=== PATIENT | male | born 1990 | race Caucasian/White ===

== ENCOUNTER 2020-06-25 16:30 | Emergency (ER) | payer OTHER ==
[2020-06-25] MEDS ORDERED: OXYMETAZOLINE HCL 100 SPRAYS BOTTLE NAS STA (16:53)
--- NOTE | 2020-06-25 16:56 | ED Physician Documentation ---
History of Present Illness - Stated complaint Stated Complaint: NOSE BLEED/CHEST PX - Chief complaint Chief Complaint: Cardiac - History obtained from History obtained from: Patient - History of Present Illness Timing: Today Pain level max: 2 Pain level now: 1 - Additonal information Additional information: 29-year-old male presents to the emergency department with a nosebleed today. He states that this lasted about 10 to 15 minutes. Resolved with stuffing a napkin in his nose. He states that he remove the napkin and blew his nose and sneezed and the bleeding started again. He repacked his nose. Later he took the packing out again and started to bleed again. No active bleeding currently. He states he also has some chest pain described as a dull pressure sometimes on the left side of the chest, sometimes on the right side of the chest. Nothing makes it better or worse. Denies being on any medications at home. Nothing makes it better or worse. No shortness of breath. No nausea. No vomiting. Review of Systems Ten Systems: 10 systems reviewed and negative Constitutional: denies: Fever, Chills Ears: denies: Ear pain Nose: denies: Rhinorrhea / runny nose, Congestion Throat: denies: Sore throat Cardiac: denies: Palpitations, Calf pain Respiratory: denies: Cough GI: denies: Abdominal Pain, Vomiting, Diarrhea : denies: Dysuria Skin: denies: Rash Musculoskeletal: denies: Neck pain, Back pain Neurologic: denies: Headache PD PAST MEDICAL HISTORY - Past Medical History Past Medical History: No - Past Surgical History Past Surgical History: No - Present Medications Home Medications: Ambulatory Orders Medication Instructions Recorded Confirmed Oxymetazoline HCl [Afrin] 2 sprays FAHAD BID PRN #1 bottle 06/25/20 - Allergies Allergies/Adverse Reactions: Allergies Allergy/AdvReac Type Severity Reaction Status Date / Time No Known Drug Allergies Allergy Verified 06/25/20 16:32 - Living Situation Living Arrangement: reports: At home - Social History Does the pt have substance abuse?: No - Family History Family history: reports: Non contributory PD ED PE NORMAL - Vitals Vital signs reviewed: Yes - General General: Alert and oriented X 3, No acute distress, Well developed/nourished - HEENT HEENT: PERRL, Moist mucous membranes, Other (Dried blood in the right nare. No active bleeding) - Neck Neck: Supple, no meningeal sign - Cardiac Cardiac: RRR, Strong equal pulses - Respiratory Respiratory: No respiratory distress, Clear bilaterally - Abdomen Abdomen: Soft, Non tender, Non distended - Derm Derm: Warm and dry - Extremities Extremities: No edema - Neuro Neuro: Alert and oriented X 3 - Psych Psych: Normal mood, Normal affect Results - Vitals Vitals: Vital Signs - 24 hr 06/25/20 06/25/20 16:33 17:43 Temperature 37.0 C Heart Rate 73 86 Respiratory 18 17 Rate Blood Pressure 142/91 H 122/75 O2 Saturation 99 99 Oxygen O2 Source Room air - EKG (time done) 1638 Rate: Rate (enter#) (77) Rhythm: NSR [place]: Normal Intervals: Normal NC QRS: Normal Ischemia: Normal ST segments - Labs Labs: Laboratory Tests 06/25/20 06/25/20 06/25/20 16:55 16:55 16:55 WBC 9.8 RBC 5.04 Hgb 15.2 Hct 42.8 MCV 84.9 MCH 30.2 MCHC 35.5 RDW 11.9 L Plt Count 220 MPV 10.6 Neut # (Auto) 4.8 Lymph # (Auto) 4.1 H [place] # (Auto) 0.4 Eos # (Auto) 0.4 Baso # (Auto) 0.1 Absolute Nucleated RBC 0.00 Nucleated RBC % 0.0 Sodium 137 Potassium 3.6 Chloride 103 Carbon Dioxide 24 Anion Gap 10.0 BUN 17 Creatinine 1.1 Estimated GFR (MDRD) 79 L Glucose 119 H Calcium 9.6 Total Bilirubin 0.7 AST 24 ALT 51 Alkaline Phosphatase 92 Troponin I High Sens 2.5 Total Protein 7.3 Albumin 4.5 Globulin 2.8 Albumin/Globulin Ratio 1.6 Lipase 36 - Rads (name of study) cxr Radiology: Prelim report reviewed, EMP read contemporaneously, See rad report (no acute cardiopulmonary abnormality) PD MEDICAL DECISION MAKING - ED course Complexity details: reviewed results, re-evaluated patient, considered di fferential (No ST elevation HI, no aortic dissection, no PE, no tension pneumothorax, no aortic aneurysm), d/w patient ED course: No further epistaxis in the emergency department. Afrin was placed inside each nare. Counseled not to blow his nose. No evidence of acute coronary syndrome, pulmonary embolus, pneumothorax. Patient will follow up with his doctor for further care. Patient counseled regarding signs and symptoms for which I believe and urgent re-evaluation would be necessary. Patient with good understanding of and agreement to plan and is comfortable going home at this time This document was made in part using voice recognition software. While efforts are made to proofread this document, sound alike and grammatical errors may occur. Departure - Departure Disposition: Home, Self Care Clinical Impression: Epistaxis Chest pain Qualifiers: Chest pain type: unspecified Qualified Code(s): R07.9 - Chest pain, unspecified Condition: Good Instructions: ED Chest Pain Atypical Unkn Cause, ED Nosebleed Follow-Up: your,doctor in 1 week [Other] Prescriptions: Oxymetazoline HCl [Afrin] 2 sprays FAHAD BID PRN #1 bottle PRN Reason: epistaxis Comments: Follow-up with your doctor in 1 week for further care. Return if you worsen. Your testing is normal today. You can use the Afrin twice a day for the next 3 days, but not longer than that. Do not blow or pick your nose for the next 48 hours. If bleeding recurs, you can clamp your nose for 15 minutes. Discharge Date/Time: 06/25/20 17:46
[2020-06-25 17:07] LABS: BASOPHILS # (AUTO) 0.1 10^3/uL (0.0-0.1); BASOPHILS % (AUTO) 0.7 %; EOSINOPHILS # (AUTO) 0.4 10^3/uL (0.0-0.7); EOSINOPHILS % (AUTO) 3.9 %; HGB - HEMOGLOBIN 15.2 g/dL (14.0-18.0); LYMPHOCYTES # (AUTO) 4.1 10^3/uL (1.5-3.5); LYMPHOCYTES % (AUTO) 41.6 %; MEAN CORPUSCULAR HEMOGLOBIN 30.2 pg (27.0-31.0); MEAN CORPUSCULAR HGB CONC 35.5 g/dL (32.0-36.0); MEAN CORPUSCULAR VOLUME 84.9 fL (80.0-94.0); MEAN PLATELET VOLUME 10.6 fL (7.4-11.4); MONOCYTES # (AUTO) 0.4 10^3/uL (0.0-1.0); MONOCYTES % (AUTO) 4.5 %; NEUTROPHILS # (AUTO) 4.8 10^3/uL (1.5-6.6); PLT - PLATELET COUNT 220 10^3/uL (130-450); RED BLOOD COUNT 5.04 10^6/uL (4.70-6.10); RED CELL DISTRIBUTION WIDTH 11.9 % (12.0-15.0); WHITE BLOOD COUNT 9.8 x10^3/uL (4.8-10.8)
[2020-06-25 17:19] LABS: ALBUMIN 4.5 g/dL (3.2-5.5); ALBUMIN/GLOBULIN RATIO 1.6 (1.0-2.2); BILIRUBIN,TOTAL 0.7 mg/dL (0.2-1.0); CALCIUM 9.6 mg/dL (8.5-10.3); CREATININE 1.1 mg/dL (0.6-1.2); TOTAL PROTEIN 7.3 g/dL (6.7-8.2)
--- NOTE | 2020-06-25 17:24 | XRAY Report ---
PROCEDURE: Chest 1 View X-Ray INDICATIONS: Chest Pain TECHNIQUE: One view of the chest was acquired. COMPARISON: None. FINDINGS: Surgical changes and devices: None. Lungs and pleura: No pleural effusions or pneumothorax. Lungs are clear. Mediastinum: Mediastinal contours appear normal. Heart size is normal. Bones and chest wall: No suspicious bony lesions. Overlying soft tissues appear unremarkable. IMPRESSION: No acute cardiopulmonary abnormality. Reviewed by: Hayden De Leon MD on 06/25/2020 4:23 PM [facility] Approved by: Hayden De Leon MD on 06/25/2020 4:23 PM [facility] Station ID: [id number]
[2020-06-25 17:43] VITALS: BP 122/75
== END 2020-06-25 17:46 | disposition home or self-care (01) ==
LOC: ED 16:30
DX: R04.0 Epistaxis (principal); R07.9 Chest pain, unspecified
CPT/HCPCS: 71045; 80053; 83690; 84484; 85025; 93005; 99284; A9270

== ENCOUNTER 2021-08-25 13:28 | Emergency (ER) | payer OTHER ==
[2021-08-25 13:38] VITALS: BP 124/79
--- NOTE | 2021-08-25 13:48 | ED Physician Documentation ---
PD HPI LOWER EXT INJURY - Stated complaint Stated Complaint: LEFT ANKLE INJURY - Chief complaint Chief Complaint: Trauma Ext - History obtained from History obtained from: Patient - History of Present Illness PD HPI LOW EXT INJURY LOCATION: Left, Ankle Type of injury: Twist Where injury occurred: Street Timing - onset: Today Timing - duration: Hours Timing - details: Abrupt onset, Still present Improved by: Rest, Immobilization Worsened by: Moving, Palpating Associated symptoms: Swelling. No: Weakness, Numbness Contributing factors: No: Anticoagulated Similar symptoms before: Diagnosis (ankle sprain) Recently seen: Not recently seen - Additional information Additional information: 30-year-old male reports that he was out skateboarding today when he went over a small pyramid be board flipped and he landed twisting his left ankle and an inversion injury. He has been able to bear some weight on this and comes to the emergency department now for evaluation. He states he has 8 out of 10 pain and had some queasiness with the onset of the pain. He has not otherwise been ill recently. Review of Systems Constitutional: denies: Fever Nose: denies: Congestion Respiratory: denies: Cough GI: denies: Vomiting, Diarrhea Musculoskeletal: reports: Joint pain, Joint swelling, Pain with weight bearing. denies: Neck pain, Back pain Neurologic: denies: Generalized weakness, Focal weakness, Numbness PD PAST MEDICAL HISTORY - Past Medical History Cardiovascular: None Respiratory: None Neuro: None Endocrine/Autoimmune: None GI: None : None HEENT: None Psych: None Musculoskeletal: None Derm: None - Past Surgical History Past Surgical History: No - Present Medications Home Medications: Ambulatory Orders Medication Instructions Recorded Confirmed Oxymetazoline HCl [Afrin] 2 sprays FAHAD BID PRN #1 bottle 06/25/20 - Allergies Allergies/Adverse Reactions: Allergies Allergy/AdvReac Type Severity Reaction Status Date / Time No Known Drug Allergies Allergy Verified 08/25/21 13:38 - Social History Does the pt smoke?: No Smoking Status: Never smoker Does the pt drink ETOH?: No Does the pt have substance abuse?: No - Immunizations Immunizations are current?: Yes - POLST Patient has POLST: No PD ED PE NORMAL - Vitals Vital signs reviewed: Yes (normal) - General General: Alert and oriented X 3, No acute distress, Well developed/nourished - HEENT HEENT: Atraumatic, PERRL, EOMI - Respiratory Respiratory: No respiratory distress - Derm Derm: Normal color, Warm and dry, No rash - Extremities Extremities: No deformity, Other (swelling and point tenderness over the left talofibular ligament and lateral malleolus. Proximal 5th is unaffected. 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, No motor deficit, No sensory deficit, Normal speech Eye Opening: Spontaneous Motor: Obeys Commands Verbal: Oriented GCS Score: 15 - Psych Psych: Normal mood, Normal affect Results - Vitals Vitals: Vital Signs - 24 hr 08/25/21 13:35 Temperature 36.0 C L Heart Rate 100 Respiratory 16 Rate Blood Pressure 124/79 O2 Saturation 99 Oxygen O2 Source Room air - Rads (name of study) ankle Radiology: Prelim report reviewed (Impression: No acute osseous abnormality.), EMP read indepedently, See rad report Procedures - Splint (location) ankle L Splint applied by: Physician Type of splint: Ankle airsplint Other: Patient tolerated well, No complications, Neurovascular intact, Good alignment PD MEDICAL DECISION MAKING - ED course Complexity details: reviewed results, re-evaluated patient, considered differential, d/w patient ED course: 30-year-old male who twisted his ankle while skateboarding presents to the emergency department today and films were taken of his ankle which did not demonstrate any evidence of a fracture. We were able to place him into an air cast and I have asked patient to wear this / for the next 2 weeks. 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 Departure - Departure Disposition: 01 Home, Self Care Clinical Impression: Ankle sprain Qualifiers: Encounter type: initial encounter Involved ligament of ankle: anterior talofibular ligament Laterality: left Qualified Code(s): S93.492A - Sprain of other ligament of left ankle, initial encounter Condition: Stable Instructions: ED Sprain Ankle W X Ray Follow-Up: [facility] [Provider Group]
--- NOTE | 2021-08-25 14:09 | XRAY Report ---
PROCEDURE: Ankle 3 View LT INDICATIONS: twist lateral pain TECHNIQUE: 3 views of the ankle were acquired. COMPARISON: None. FINDINGS: BONES: No acute, displaced fracture or dislocation. The ankle mortise is maintained on these nonstre ssed views. SOFT TISSUES: Trace tibiotalar joint effusion. Lateral soft tissue edema. IMPRESSION: 1.No acute osseous abnormality. Reviewed by: Chris Wan MD on 08/25/2021 2:08 PM PST Approved by: Chris Wan MD on 08/25/2021 2:08 PM PST Station ID: [id number]
== END 2021-08-25 14:39 | disposition home or self-care (01) ==
LOC: ED 13:28
DX: S93.492A Sprain of other ligament of left ankle, initial encounter (principal); X50.1XXA Overexertion from prolonged static or awkward postures, initial encounter; Y93.51 Activity, roller skating (inline) and skateboarding; Y92.410 Unspecified street and highway as the place of occurrence of the external cause
CPT/HCPCS: 29515; 99282

== ENCOUNTER 2023-04-26 18:17 | Emergency (ER) | payer OTHER ==
[2023-04-26 19:33] LABS: B. PARAPERTUSSIS- RESP PCR PAN NOT DETECTED; B. PERTUSSIS- RESP PCR PANEL NOT DETECTED; C. PNEUMONIAE- RESP PCR PANEL NOT DETECTED; CORONAVIRUS 229E-RESP PCR NOT DETECTED; CORONAVIRUS HKU1-RESP PCR NOT DETECTED; CORONAVIRUS NL63-RESP PCR NOT DETECTED; CORONAVIRUS OC43-RESP PCR NOT DETECTED; HUMAN METAPNEUMOVIRUS NOT DETECTED; INFLUENZA A- RESP PCR PANEL NOT DETECTED; INFLUENZA B - RESP PCR PANEL NOT DETECTED; M. PNEUMONIAE- RESP PCR PANEL NOT DETECTED; PARAINFLUENZA VIRUS 1 NOT DETECTED; PARAINFLUENZA VIRUS 2 NOT DETECTED; PARAINFLUENZA VIRUS 3 NOT DETECTED; PARAINFLUENZA VIRUS 4 NOT DETECTED; RHINOVIRUS/ENTEROVIRUS NOT DETECTED; RSV- RESP PCR PANEL NOT DETECTED; SARS-CoV-2 -RESP PCR PANEL NOT DETECTED
--- NOTE | 2023-04-26 19:44 | ED Physician Documentation ---
PD HPI URI - Stated complaint Stated Complaint: FEVER,CHILLS,BODYACHES - Chief complaint Chief Complaint: Heent - History obtained from History obtained from: Patient - History of Present Illness Timing - onset: How many days ago (2) Timing duration: Days (2) Timing details: Gradual onset Associated symptoms: Fever, Rhinorrhea, Dry cough. No: Hemoptysis, Chest pain, Dyspnea, NVD - Additional information Additional information: 32-year-old male with a fever and a cough since yesterday. He states he took a home COVID test and was unsure if it was positive or negative. Came here for a COVID test. The cough is mostly dry. No nausea or vomiting. No dyspnea. No chest pain. Nothing makes it better or worse. Review of Systems Constitutional: reports: Fever Nose: reports: Rhinorrhea / runny nose, Congestion Cardiac: denies: Chest pain / pressure Respiratory: reports: Cough. denies: Dyspnea, Wheezing GI: denies: Abdominal Pain, Nausea, Vomiting, Diarrhea Skin: denies: Rash PD PAST MEDICAL HISTORY - Past Medical History Cardiovascular: None Respiratory: None Neuro: None Endocrine/Autoimmune: None GI: None : None HEENT: None Psych: None Musculoskeletal: None Derm: None - Past Surgical History Past Surgical History: No - Present Medications Home Medications: Ambulatory Orders Medication Instructions Recorded Confirmed No Known Home Medications 04/26/23 04/26/23 - Allergies Allergies/Adverse Reactions: Allergies Allergy/AdvReac Type Severity Reaction Status Date / Time No Known Drug Allergies Allergy Verified 08/25/21 13:38 - Social History Does the pt smoke?: No Smoking Status: Never smoker Does the pt drink ETOH?: No Does the pt have substance abuse?: No - Immunizations Immunizations are current?: Yes - POLST Patient has POLST: No PD ED PE NORMAL - Vitals Vital signs reviewed: Yes - General General: Alert and oriented X 3, No acute distress - HEENT HEENT: PERRL, Moist mucous membranes - Neck Neck: Supple, no meningeal sign - Cardiac Cardiac: RRR, Strong equal pulses - Respiratory Respiratory: No respiratory distress, Clear bilaterally - Abdomen Abdomen: Soft, Non tender, Non distended - Derm Derm: Warm and dry - Extremities Extremities: No deformity - Neuro Neuro: Alert and oriented X 3 - Psych Psych: Normal mood, Normal affect Results - Vitals Vitals: Vital Signs - 24 hr 04/26/23 04/26/23 18:26 19:50 Temperature 37.2 C 36.8 C Heart Rate 106 H 80 Respiratory 16 18 Rate Blood Pressure 142/84 H 115/71 O2 Saturation 96 98 Oxygen O2 Source Room air - Labs Labs: Laboratory Tests 04/26/23 18:29 Nasal Adenovirus (PCR) NOT DETECTED Nasal B. parapertussis DNA (PCR) NOT DETECTED Nasal Coronavir 229E PCR NOT DETECTED Nasal Coronavir HKU1 PCR NOT DETECTED Nasal Coronavir NL63 PCR NOT DETECTED Nasal Coronavir OC43 PCR NOT DETECTED Nasal Enterovir/Rhinovir PCR NOT DETECTED Nasal Influenza B PCR NOT DETECTED Nasal Influenza A PCR NOT DETECTED Nasal Parainfluen 1 PCR NOT DETECTED Nasal Parainfluen 2 PCR NOT DETECTED Nasal Parainfluen 3 PCR NOT DETECTED Nasal Parainfluen 4 PCR NOT DETECTED Nasal RSV (PCR) NOT DETECTED Nasal B.pertussis DNA PCR NOT DETECTED Nasal C.pneumoniae (PCR) NOT DETECTED Dev Human Metapneumo PCR NOT DETECTED Nasal M.pneumoniae (PCR) NOT DETECTED Nasal SARS-CoV-2 (PCR) NOT DETECTED PD Medical Decision Making - ED course Complexity details: reviewed results, re-evaluated patient, considered differential, d/w patient ED course: Patient is well-appearing, nontoxic. Afebrile here. No hypoxia. No respiratory distress. Respiratory PCR is negative. COVID-negative. We will treat as a viral URI and have him follow-up with his PCP for further care. Lungs clear to auscultation bilaterally. No evidence of pneumonia clinically. Patient counseled regarding signs and symptoms for which I believe and urgent re-evaluation would be necessary. Patient with good understanding of and a greement to plan and is comfortable going home at this time This document was made in part using voice recognition software. While efforts are made to proofread this document, sound alike and grammatical errors may occur. Departure - Departure Disposition: 01 Home, Self Care Clinical Impression: Viral URI Condition: Good Instructions: ED URI Viral Follow-Up: your,doctor in 1 week [Other] Comments: Your respiratory panel including your COVID test is negative tonight. This is likely a viral upper respiratory illness. Please use Motrin and Tylenol as needed for pain. Please return if you worsen. Forms: PCP List Discharge Date/Time: 04/26/23 19:50
[2023-04-26 19:57] VITALS: BP 115/71; O2SAT 98
== END 2023-04-26 19:50 | disposition home or self-care (01) ==
LOC: ED 18:17
DX: J06.9 Acute upper respiratory infection, unspecified (principal); Z20.822 Contact with and (suspected) exposure to COVID-19
CPT/HCPCS: 87633; 99283

== ENCOUNTER 2023-04-29 10:57 | Emergency (ER) | payer OTHER ==
[2023-04-29 11:30] VITALS: BP 129/84; O2SAT 96
--- NOTE | 2023-04-29 11:35 | ED Physician Documentation ---
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 Worked last night. When he woke up this morning he found that he had green crusting on his left eye. No loss of vision. Eye feels heavy and full. Wants to make sure he does not have a conjunctivitis that his communicable. Review of Systems Eyes: reports: Discharge, Irritation. denies: Loss of vision, Decreased vision Ears: reports: Reviewed and negative Nose: reports: Congestion Respiratory: reports: Cough GI: reports: Reviewed and negative PD PAST MEDICAL HISTORY - Past Medical History Past Medical History: No Cardiovascular: None Respiratory: None Neuro: None Endocrine/Autoimmune: None GI: None : None HEENT: None Psych: None Musculoskeletal: None Derm: None - Past Surgical History Past Surgical History: No - Present Medications Home Medications: Ambulatory Orders Medication Instructions Recorded Confirmed Ofloxacin 0.3% Ophth Drops 5 drops LEFTEYE BID 5 Days #5 ml 04/29/23 [Ocuflox 0.3% Ophth Drops] - Allergies Allergies/Adverse Reactions: Allergies Allergy/AdvReac Type Severity Reaction Status Date / Time No Known Drug Allergies Allergy Verified 08/25/21 13:38 - Social History Does the pt smoke?: No Smoking Status: Never smoker Does the pt drink ETOH?: No Does the pt have substance abuse?: No - Immunizations Immunizations are current?: Yes - POLST Patient has POLST: No PD ED PE NORMAL - General General: Alert and oriented X 3, No acute distress, Well developed/nourished - HEENT HEENT: Atraumatic, PERRL, EOMI, Moist mucous membranes, Other (Left eye with mild conjunctival injection. No obvious drainage noted. Negative fluorescein stain. No pain with ocular movement. Reports normal vision) Results - Vitals Vitals: Vital Signs - 24 hr 04/29/23 11:20 Temperature 37 C Heart Rate 88 Respiratory 16 Rate Blood Pressure 129/84 H O2 Saturation 96 Oxygen O2 Source Room air PD Medical Decision Making - ED course Complexity details: d/w patient ED course: 32-year-old male here with some left eye conjunctival injection and drainage noted at home. On exam no fluorescein uptake or findings suggest abrasion or ulceration. Given the reported green mucoid drainage we will treat for possible bacterial conjunctivitis with ofloxacin drops. History is not consistent with an iritis or keratitis. Discussed warm compress. Follow-up with [facility]. The usual emergent return precautions for worsening symptoms discussed. Departure - Departure Disposition: 01 Home, Self Care Clinical Impression: Acute conjunctivitis, left eye Qualifiers: Acute conjunctivitis type: unspecified Qualified Code(s): H10.32 - Unspecified acute conjunctivitis, left eye Condition: Stable Record reviewed to determine appropriate education?: Yes Prescriptions: Ofloxacin 0.3% Ophth Drops [Ocuflox 0.3% Ophth Drops] 5 drops LEFTEYE BID 5 Days #5 ml Comments: Cristino you have recently been dealing with a head cold. This morning he woke up and found that your left eye was inflamed and had some green drainage. In order to treat this I would like you to place a warm compress of the left eye for 5 minutes twice a day. Following this place 5 antibiotic drops in the left eye. After 24 to 40 hours of treatment I would expect marked improvement in your symptoms. Please follow closely with [facility]. Return immediately to the ER for any new or worsening symptoms including severe eye pain or loss of vision.
== END 2023-04-29 11:50 | disposition home or self-care (01) ==
LOC: ED 10:57
DX: H10.32 Unspecified acute conjunctivitis, left eye (principal)
CPT/HCPCS: 99282; 99283

== ENCOUNTER 2023-09-24 13:58 | Outpatient (CLI) | payer OTHER ==
--- NOTE | 2023-09-24 14:58 | Sleep Patient Instructions ---
Sleep Center Visit Summary - Patient Visit Information Reason for Visit: Initial consult for evaluation of sleep disordered breathing and other sleep issues. - Patient Instructions Instructions Attached: Sleep Study, Sleep Study Home Monitor Additional Instructions: You will be completing a sleep study, either an in-lab polysomnography (PSG) or home sleep study (HST). You will follow-up in the sleep care office after the sleep study is completed to hear the results and talk about therapy, if needed. You will be called by our office staff to schedule this appointment, but you may contact us with any questions. - Clinic Information Contact: [facility] [address] [place] [id number] [email or web address] T: [phone]
--- NOTE | 2023-09-24 15:02 | SLEEP CARE CONSULTATION ---
Information from patient questionnaire entered by Rakan Estrada. I have reviewed and concur with the information entered by Rakan Estrada. This document represents the service I personally performed and the decisions made by me, Eleanor Kohli ARNP. History of Present Illness Service Date and Time: 09/24/2023 5607 Reason for Visit: New patient Chief Complaint: reports: Unrefreshed sleep, Snoring, Excessive daytime sleepiness, Observed pauses in breathing, Fatigue, Frequent awakenings at night Date of Onset: 15 years Usual bedtime: 9 PM - 11 PM Time it takes to fall asleep: 5-15 min Snores at night: Yes Observed to quit breathing while asleep: Yes Sleeps alone due to snoring: No Number of times waking at night: 2 - 3 Reasons for waking at night: reports: Choking, Snoring, Gasping for air (not all the time), Bathroom, Other (unknown reasons) Toss, Turn, or Twitch while sleeping: Yes Recalls having dreams: Yes Usually gets out of bed at: 4 - 6 AM; weekends 6-7 AM Feels refreshed in the morning: No Morning headache: No Sleepy or fatigued during the day: Yes Ever fallen asleep while driving: No Takes day naps: No Dreams during day naps: No Prior sleep studies: No Additional HPI information: I had the pleasure of seeing LYNDA BLACKMON today regarding the possibility of him having a sleep disorder. His current complaints are excessive daytime sleepiness, fatigue, frequent night awakenings, observed pauses in breathing, snoring and unrefreshed sleep. He was talking to flight doc about sleep issues last year. He was unable to followup with referral for sleep last year. He was referred back here as an emergent referral. His says he is a loud snorer and will stop breathing when sleeping. He says his nostrils will collapse and restrict his ability to breathe through his nose. 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 Patient is and lives in [place]. Have you smoked in the past 12 months: Yes (vaping, not cigarettes) Cigarettes per day (20/pack): 20 Years of smokin Quit date: 2020 Smoking Pack Years: 18.0 Alcohol use: Yes Alcohol amount and frequency: Couple beers every few weeks Caffeine use: Yes Caffeine amount and frequency: 1 coffee daily Family History Family history of sleep disordered breathing: Yes Family Hx Sleep Apnea: Sibling: Snoring, Sleep apnea - Treated Allergies and Home Medications Known drug allergies: No Drug allergies reviewed: Yes Home medication list reviewed: Yes Allergy and home medication list: Allergies No Known Drug Allergies Allergy Home Medications No Known Home Medications 09/24/23 [History] Review of Systems Weight gain over past 5 years: 0 Weight loss over past 5 years: 0 Cardiovascular: denies: high blood pressure Gastrointestinal: reports: heartburn, diarrhea Neurological: denies: headaches Psychiatric: denies: anxiety, depression Ear/Nose/Throat: reports: nasal congestion, sinus problems, nose bleeds, dry mouth/throat, wisdom teeth removed. denies: tonsillectomy Endocrine: reports: increased appetite Musculoskeletal: reports: joint pain (/stiffness), back pain Immunologic: reports: sneezing (/runny nose) Physical Exam Vital signs obtained and entered by: Eleanor Johnson NP Blood Pressure: 117/70 Cuff size: wrist (left) Heart Rate: 91 O2 Saturation: 96 Height: 5 ft 6 in Weight: 192 lb 9.6 oz Body Mass Index: 31.1 BMI Classification: Obese Neck circumference: 15.5 Mouth and throat: narrow oropharynx Soft palate: long Hard palate: normal Uvula: normal Uvula visualization: 25% Mallampati Class III Tongue: enlarged in size with teeth perez on lateral edges Tonsils: 2+ Neck: normal w/o lymphadenopathy or thyromegaly Heart: regular rate and rhythm Lungs: clear bilaterally Impression and Plan 1. Suspected Obstructive Sleep Apnea-Hypopnea Syndrome, as suggested by a history of loud and irregular snoring, observed cessation of breath while asleep, gasping or choking in sleep, frequent awakening during the night, unrefreshed sleep, cognitive impairment, and excessive daytime sleepiness. Narrow oropharynx and obesity are common predisposing factors for obstructive sleep apnea-hypopnea syndrome. I recommend proceeding to polysomnography to confirm the diagnosis and to assess severity. If the patient has significant sleep disordered breathing, a manual CPAP titration study will also be performed to find the optimal treatment pressure. I informed the patient of what the sleep studies involve and after some discussion, obtained agreement to proceed. The pathophysiology of obstructive sleep apnea-hypopnea syndrome was discussed with the patient and health risks of cardiovascular and cerebrovascular disease if not treated. Risks of drowsy driving discussed in detail and patient advised to avoid long distance driving and to tack puller at the first sign of drowsiness. Patient agreed to plan. * Schedule polysomnography. * Avoid long distance driving or driving when feeling sleepy. * Avoid alcohol, sedative and muscle relaxant around bedtime. * Attempt to lose weight. * Review instructions provided by trained office staff on how to prepare for the sleep study. * Return for follow-up after sleep study completed. Counseling Topics: Weight loss health impact Plan: PSG/HST Visit Type: In Office Time Spent with Patient (minutes): 30 Provider Statement: I spent 100% of the Face to Face Visit with the patient with greater than 50% spent counseling the patient and coordination of care.
[2023-09-24 15:04] VITALS: BP 117/70; O2SAT 96
== END 2023-09-24 13:59 | disposition home or self-care (01) ==
LOC: SC 13:58
PROVIDERS: ATTEND Nurse Practitioner Family
DX: R06.83 Snoring (principal); R06.81 Apnea, not elsewhere classified; G47.8 Other sleep disorders; R41.89 Other symptoms and signs involving cognitive functions and awareness; G47.10 Hypersomnia, unspecified; E66.9 Obesity, unspecified; Z68.31 Body mass index [BMI] 31.0-31.9, adult; Z87.891 Personal history of nicotine dependence
CPT/HCPCS: 99203; 99212

== ENCOUNTER 2023-10-03 09:47 | Emergency (ER) | payer OTHER ==
--- NOTE | 2023-10-03 11:29 | ED Physician Documentation ---
History of Present Illness - Stated complaint Stated Complaint: LT FOOT SWELLING - Chief complaint Chief Complaint: Ext Problem - History obtained from History obtained from: Patient - Additonal information Additional information: 34-year-old male presents with concern for bilateral lower extremity swelling, left more so than right. Patient states that he had flown to [place], then drove to [place] then back to [place] and then flew home over the course of the last week or so. While he was in [place], he did get a sunburn on the top of his feet and then subsequently developed a swelling the day after. He is occasional mild twinges of pain in the back of the left leg. He has not had a fever, there has not been any blistering or drainage in the lower extremity, no chest pain or shortness of breath. Patient has no history of DVT or PE but states there is a strong family history with his mother and multiple other family members with VTEs therefore he wanted to be evaluated. Review of Systems Constitutional: reports: Reviewed and negative Eyes: reports: Reviewed and negative Ears: reports: Reviewed and negative Nose: reports: Reviewed and negative Throat: reports: Reviewed and negative Cardiac: reports: Pedal edema. denies: Chest pain / pressure, Calf pain Respiratory: reports: Reviewed and negative GI: reports: Reviewed and negative : reports: Reviewed and negative Skin: reports: Rash Musculoskeletal: reports: Extremity swelling Neurologic: reports: Reviewed and negative Psychiatric: reports: Reviewed and negative Endocrine: reports: Reviewed and negative PD PAST MEDICAL HISTORY - Past Medical History Past Medical History: No Cardiovascular: None Respiratory: None Neuro: None Endocrine/Autoimmune: None GI: None : None HEENT: None Psych: None Musculoskeletal: None Derm: None - Past Surgical History Past Surgical History: Yes General: Hiatal hernia repair - Present Medications Home Medications: Ambulatory Orders Medication Instructions Recorded Confirmed No Known Home Medications 09/24/23 10/03/23 - Allergies Allergies/Adverse Reactions: Allergies Allergy/AdvReac Type Severity Reaction Status Date / Time No Known Drug Allergies Allergy Verified 10/03/23 10:07 - Social History Does the pt smoke?: No Smoking Status: Never smoker Does the pt drink ETOH?: Yes Does the pt have substance abuse?: No - Immunizations Immunizations are current?: Yes - POLST Patient has POLST: No PD ED PE NORMAL - Vitals Vital signs reviewed: Yes - General General: Alert and oriented X 3, No acute distress, Well developed/nourished - HEENT HEENT: Atraumatic, Moist mucous membranes - Cardiac Cardiac: RRR, No murmur - Respiratory Respiratory: No respiratory distress, Clear bilaterally - Derm Derm: Normal color, Warm and dry, Other (Mild sunburn to the top of both feet, nontender, no cellulitis.) - Extremities Extremities: No calf tenderness / cord, Other (Bilateral ankle and foot edema, left more so than right) - Neuro Neuro: Alert and oriented X 3 Eye Opening: Spontaneous Motor: Obeys Commands Verbal: Oriented GCS Score: 15 Results - Vitals Vitals: Vital Signs - 24 hr 10/03/23 09:59 Temperature 37.3 C Heart Rate 77 Respiratory 14 Rate Blood Pressure 128/81 H O2 Saturation 98 Oxygen O2 Source Room air - Rads (name of study) No standard instances Relevant Findings:: Prelim report reviewed PD Medical Decision Making - ED course Complexity details: reviewed results, re-evaluated patient, considered differential, d/w patient ED course: 33-year-old male presented with bilateral lower extremity swelling, left more so than right. He did sustain a sunburn to the top of both feet while in [place] recently and I think this is likely the cause of his swelling as well as his legs being in dependent position frequently over the last Week, but the patient did have some risk factors for possible DVT as well as family history therefore we did obtain ultrasound which was negative. Patient advised to keep legs elevated whenever possible, adhere to a low-salt diet, consider compression stockings, and monitor sunburn to ensure healing and no infection. Return precautions reviewed in detail with the patient and was discharged home in stable condition. Departure - Departure Disposition: 01 Home, Self Care Clinical Impression: Bilateral lower extremity edema Condition: Good Instructions: ED Edema Legs Bilateral Comments: I think the swelling is likely due to your recent sunburn. You do not have any blood clot on the ultrasound. Please keep the legs elevated whenever possible for the next few days, you can consider getting compression stockings, and to keep the sunburn and skin moisturized to avoid any infection. If you have any new concerns, return to the ER. Forms: PCP List
--- NOTE | 2023-10-03 13:10 | Ultrasound Report ---
PROCEDURE: Duplex Ext Veins Left INDICATIONS: swelling, risk factors for DVT TECHNIQUE: Real-time imaging, as well as color and pulse Doppler interrogation, were performed of the lower extr emity deep veins from the inguinal ligament to the popliteal fossa. Attempted visualization of the ca lf veins was performed. COMPARISON: None. FINDINGS: The deep veins are normally compressible, and free of intraluminal thrombus. Color and pu lse Doppler demonstrate normal phasic intraluminal flow. There is normal augmentation response to di stal compression maneuver. IMPRESSION: No deep venous thrombosis of the visualized lower extremity. Note: Concordant preliminary findings given by the senior network engineer upon the completion of the examination to Irene Brar. Reviewed by: Brien Dudley MD on 10/03/2023 12:09 PM JULIOCESAR Approved by: Brien Dudley MD on 10/03/2023 12:09 PM JULIOCESAR Station ID: [id number]
[2023-10-03 13:12] VITALS: BP 134/90; O2SAT 99
== END 2023-10-03 13:10 | disposition home or self-care (01) ==
LOC: ED 09:47
DX: R60.0 Localized edema (principal)
CPT/HCPCS: 99283; 99284

== ENCOUNTER 2023-10-23 07:53 | Outpatient (CLI) | payer OTHER | END 2023-10-23 07:54 | disposition home or self-care (01) | LOC: SC 07:53 | PROVIDERS: ATTEND Nurse Practitioner Family | DX: R06.83 Snoring (principal); R09.02 Hypoxemia; G47.10 Hypersomnia, unspecified; R53.83 Other fatigue; G47.8 Other sleep disorders; E66.9 Obesity, unspecified; R06.81 Apnea, not elsewhere classified | CPT/HCPCS: 95806 ==

== ENCOUNTER 2023-11-06 15:28 | Outpatient (CLI) | payer OTHER ==
--- NOTE | 2023-11-06 15:57 | Sleep Patient Instructions ---
Sleep Center Visit Summary - Patient Visit Information Reason for Visit: Sleep study follow-up - Patient Instructions Instructions Attached: Snoring Tips Prevent Additional Instructions: Your sleep study today was negative for significant sleep disordered breathing. However, you did have elevated respiratory episodes when sleeping on your back. You should avoid sleeping on your back to control these respiratory episodes. You were found to have episodes of snoring. There are different ways to control snoring including weight loss, oral devices made by a dentist or surgical options through ENT specialist. You should not use oral devices that do not fit properly because they can affect your bite. You should also check insurance coverage of oral devices for snoring because they may not be cover well. You may obtain a referral to an ENT specialist through your primary provider. Follow-up as needed. - Clinic Information Contact: [facility] [address] [place] [address] [email or web address] T: [phone]
--- NOTE | 2023-11-06 15:59 | SLEEP CARE CONSULTATION ---
Information from patient questionnaire entered by Sarah Gordillo. I have reviewed and concur with the information entered by Sarah Gordillo. This document represents the service I personally performed and the decisions made by , Eleanor Kohli ARNP. History of Present Illness Service Date and Time: 11/06/2023 152 Initial [place] Sleepiness Scale score: 8 (in 2023) Current [place] Sleepiness Scale score: 7 (11/06/23) Additional HPI information: LYNDA BLACKMON returns for follow up and results of the recently performed home sleep study. The patient was informed of the following findings: No significant sleep disordered breathing with an average AHI of 4 and tremayne oxygen saturation of 89%. I explained the pathophysiology behind obstructive sleep apnea. Patient does not have sleep apnea and was advised how weight gain could increase the risk of developing sleep apnea in the future. I strongly encouraged the patient to lose weight. Patient does not have significant sleep disordered breathing but has elevated AHI in supine position so advised positional therapy. Methods to achieve positional management therapy were discussed; such as, positioning with pillows, wearing a T-shirt with tennis balls sewn into the back, or commercially available products. Patient has mild to moderate snoring. Snoring can be reduced by weight loss. Weight loss is best achieved with diet consult. Patient instructed to contact PCP for referral. Snoring can also be treated with an oral appliance from a dentist. Advised to check insurance coverage. In addition, an ENT evaluation can be do to see if other treatment is indicated. Patient counseled not drink alcohol less than 4 hours before bedtime as it can increase snoring and apnea. Patient was cautioned about risks of drowsy driving until sleepiness symptoms resolve. Patient denies drowsy driving. Sleep Study - Results Type of Sleep Study: Home sleep study (COMPLETED 10/23/23) Prior sleep studies: No Polysomnography/Home Sleep Study results: Physician Impression: The quality of the study is good. The length of the study is adequate (> 240 minutes). Please also see the tabulated and graphic data. 1. No significant sleep disordered breathing, with an AHI of 4.0/hr and tremayne SaO2 of 89%. During the study, the patient had 2 apneas (2 obstructive, 0 central, 0 mixed) and 24 hypopneas. The longest episode lasted 106.0 seconds. The respiratory events occurred almost exclusively during supine sleep (supine AHI was 5.0 and non-supine, 2.36). 2. Hypoxemia (ICD-10 R09.02), minimal, with the lowest oxygen saturation of 89 % and 0.1 minutes with SaO2 under 90%. Baseline oxygen saturation was normal (Average oxygen saturation was 95%). Allergies and Home Medications Known drug allergies: No Drug allergies reviewed: Yes Home medication list reviewed: Yes (no changes) Allergy and home medication list: Allergies No Known Drug Allergies Allergy Review of Systems Review of systems same as previous: Yes (NO CHANGE) Physical Exam Vital signs obtained and entered by: SARAH Kaiser MA Blood Pressure: 123/85 (RIGHT ARM) Cuff size: long Heart Rate: 78 O2 Saturation: 98 Height: 5 ft 6 in Weight: 193 lb 9.6 oz Body Mass Index: 31.2 BMI Classification: Obese Impression and Plan 1. Snoring but no significant sleep disordered breathing. However, he has minimal elevation of AHI when sleeping supine and should avoid sleeping on his back. Patient advised that often weight loss will reduce snoring as well as apnea risk. An oral appliance can also be used for snoring. This would require a dental consultation. Patient cautioned not to use other online appliances as can cause bite issues. A list of accredited dentists in area and one local dentist who makes oral appliances given. Patient is advised to check if insurance will cover. An ENT consult can also be helpful to determine if any other treatment is an option. 2. Obesity, unspecified. Currently patients BMI is 31.2. Obesity increases the risk of apnea, CPAP pressure requirements and overall health risks especially cardiovascular and diabetes. Thus patient is advised to lose weight. * Avoid sleeping supine * Attempt to lose weight * Avoid alcohol consumption near bedtime * The patient is cautioned about driving until sleepiness is completely resolved. * Return as needed for follow up. Counseling Topics: Sleeping position, Weight loss health impact Follow up with Sleep Care in: as needed Visit Type: In Office Time Spent with Patient (minutes): 12 Provider Statement: I spent 100% of the Face to Face Visit with the patient with greater than 50% spent counseling the patient and coordination of care.
[2023-11-06 16:06] VITALS: BP 123/85; O2SAT 98
== END 2023-11-06 15:29 | disposition home or self-care (01) ==
LOC: SC 15:28
PROVIDERS: ATTEND Nurse Practitioner Family
DX: R06.83 Snoring (principal); E66.9 Obesity, unspecified; Z68.31 Body mass index [BMI] 31.0-31.9, adult
CPT/HCPCS: 99212